=== PATIENT | male | born 1950 | race African-American/Black ===

== ENCOUNTER 2022-03-28 09:48 | Outpatient (CLI) | payer OTHER | END 2022-03-28 09:49 | disposition home or self-care (01) | LOC: BICULT 09:48 | PROVIDERS: ATTEND Physician Assistant Medical | DX: R79.89 Other specified abnormal findings of blood chemistry (principal); B18.2 Chronic viral hepatitis C; K76.89 Other specified diseases of liver; N28.1 Cyst of kidney, acquired | CPT/HCPCS: 76705 ==

== ENCOUNTER 2022-05-02 10:48 | Outpatient (CLI) | payer OTHER ==
[~2022-05-02 10:48] MED LIST: Iopamidol 370 76% 100 ML VIAL ONE
== END 2022-05-02 10:49 | disposition home or self-care (01) ==
LOC: CT 10:48
PROVIDERS: ATTEND Physician Assistant Medical
DX: R79.89 Other specified abnormal findings of blood chemistry (principal); R93.89 Abnormal findings on diagnostic imaging of other specified body structures; B18.2 Chronic viral hepatitis C
CPT/HCPCS: 74170; 82565; Q9967

== ENCOUNTER 2022-05-06 19:39 | Emergency (ER) | payer OTHER ==
[2022-05-06 20:43] LABS: #Basophils 0.1 thou/uL (0.0-0.2); #Eosinphils 0.4 thou/uL (0.0-0.7); #Lymphocytes 2.4 thou/uL (1.20-3.40); #Monocytes 1.2 thou/uL (0.11-0.59); #Neutrophils 6.7 thou/uL (1.40-6.50); %Basophils 0.9 % (0.0-1.0); %Eosinophils 3.5 % (0.0-10.0); %Lymphocytes 22.3 % (21.0-51.0); %Monocytes 11.3 % (0.0-10.0); %Neutrophils 62.1 % (42.0-75.0); Hemoglobin 10.4 g/dL (14.0-18.0); Mean Corpuscular HGB CONC 32.9 g/dL (32.0-36.0); Mean Corpuscular Hemoglobin 33.5 pg (27.0-31.0); Mean Platelet Volume 10.8 fL (7.4-10.4); Platelet Count 229 thou/uL (130-400); RBC Distribution Width 18.5 % (11.5-14.5); White Blood Cell (WBC) Count 10.7 thou/uL (4.8-10.8)
[2022-05-06 21:00] LABS: ALT (SGPT) 109 U/L (8-55); AST (SGOT) 196 U/L (5-34); Albumin 2.3 g/dL (3.4-4.8); Alkaline Phosphatase 698 U/L (40-110); Anion Gap 14 mmol/L (10-20); BUN (Urea Nitrogen) 13 mg/dL (8.4-25.7); Bilirubin, Total 17.1 mg/dL (0.2-1.2); Calc. Creatinine Clearance 0 mL/min (70-130); Carbon Dioxide 19 mmol/L (23-31); Chloride 106 mmol/L (98-107); Estimated GFR 87; Globulin 5.4 g/dL (2.4-3.5); Glucose 82 mg/dL (83-110); Protein, Total 7.7 g/dL (5.8-8.1); Sodium 135 mmol/L (136-145)
[2022-05-06] MEDS ORDERED: hydrOXYzine 25 MG TAB ONE (22:26)
== END 2022-05-06 23:44 | disposition left against medical advice (07) ==
LOC: ERS 19:39
DX: K72.90 Hepatic failure, unspecified without coma (principal); R16.0 Hepatomegaly, not elsewhere classified; I81 Portal vein thrombosis; F17.210 Nicotine dependence, cigarettes, uncomplicated
CPT/HCPCS: 36415; 71045; 80053; 83880; 84484; 85025; 93005

== ENCOUNTER 2022-05-08 21:19 | Emergency (ER) | payer OTHER ==
[2022-05-08 22:32] LABS: #Basophils 0.1 thou/uL (0.0-0.2); #Eosinphils 0.4 thou/uL (0.0-0.7); #Lymphocytes 2.5 thou/uL (1.20-3.40); #Monocytes 1.3 thou/uL (0.11-0.59); #Neutrophils 6.9 thou/uL (1.40-6.50); %Basophils 0.5 % (0.0-1.0); %Eosinophils 3.4 % (0.0-10.0); %Lymphocytes 22.2 % (21.0-51.0); %Monocytes 11.3 % (0.0-10.0); %Neutrophils 62.6 % (42.0-75.0); Hemoglobin 10.1 g/dL (14.0-18.0); Mean Corpuscular HGB CONC 32.1 g/dL (32.0-36.0); Mean Corpuscular Hemoglobin 32.5 pg (27.0-31.0); Mean Platelet Volume 10.3 fL (7.4-10.4); Platelet Count 241 thou/uL (130-400); RBC Distribution Width 18.6 % (11.5-14.5); Red Blood Cell (RBC) Count 3.12 mill/uL (4.70-6.10); White Blood Cell (WBC) Count 11.1 thou/uL (4.8-10.8)
[2022-05-08 22:48] LABS: ALT (SGPT) 101 U/L (8-55); AST (SGOT) 180 U/L (5-34); Albumin 2.3 g/dL (3.4-4.8); Alkaline Phosphatase 680 U/L (40-110); Anion Gap 14 mmol/L (10-20); BUN (Urea Nitrogen) 21 mg/dL (8.4-25.7); Bilirubin, Total 17.9 mg/dL (0.2-1.2); Calc. Creatinine Clearance 0 mL/min (70-130); Calcium 8.9 mg/dL (7.8-10.44); Carbon Dioxide 19 mmol/L (23-31); Chloride 105 mmol/L (98-107); Estimated GFR 73; Globulin 5.5 g/dL (2.4-3.5); Glucose 84 mg/dL (83-110); Potassium 4.1 mmol/L (3.5-5.1); Protein, Total 7.8 g/dL (5.8-8.1); Sodium 134 mmol/L (136-145)
[2022-05-09 00:39] LABS: Bilirubin 4+ (Negative); Blood, Urine Negative (Negative); Clarity Clear (Clear); Glucose, Urine (Dipstick) Normal (Negative); Ketone, Urine Negative (Negative); Leukocyte Negative Leu/uL (Negative); Nitrite Negative (Negative); Protein, Urine (Dipstick) 20 mg/dL (Neg-Trace); Specific Gravity, Urine 1.028 (1.002-1.036); Urobilinogen 3 mg/dL (Less than 2)
[2022-05-09] MEDS ORDERED: hydrOXYzine 25 MG TAB ONE (01:19)
[2022-05-09 03:23] LABS: SARS-CoV-2 NAA Rapid Test Not Detected (NotDetected)
== END 2022-05-09 04:26 | disposition short-term general hospital (02) ==
LOC: ERS 21:19
DX: K83.8 Other specified diseases of biliary tract (principal); E80.6 Other disorders of bilirubin metabolism; I81 Portal vein thrombosis; R74.01 Elevation of levels of liver transaminase levels; Z20.822 Contact with and (suspected) exposure to COVID-19; F17.210 Nicotine dependence, cigarettes, uncomplicated
CPT/HCPCS: 80053; 81003; 85025; 99284; U0002; 36415

== ENCOUNTER 2022-05-30 11:32 | Emergency (ER) | payer OTHER ==
[2022-05-30] MEDS ORDERED: Dextrose 50% Abboject 50 ML SYRINGE ONE (11:55)
[2022-05-30 12:58] LABS: Bilirubin Negative (Negative); Blood, Urine 1+ (Negative); Glucose, Urine (Dipstick) Normal (Negative); Ketone, Urine Trace mg/dL (Negative); Leukocyte Negative Leu/uL (Negative); Nitrite Negative (Negative); Protein, Urine (Dipstick) 20 mg/dL (Neg-Trace); RBC/HPF 0-3 HPF (0-3); Specific Gravity, Urine 1.017 (1.002-1.036); Squamous Epithelial 0-3 HPF (0-3); Urobilinogen 3 mg/dL (Less than 2); WBC/HPF 0-3 HPF (0-3); pH, Urine 5.5 (5.0-9.0)
[2022-05-30 12:59] LABS: Bacteria/HPF 1+ HPF (None Seen); Clarity Cloudy (Clear)
[2022-05-30 13:00] LABS: ALT (SGPT) 1493 U/L (8-55); Albumin 1.7 g/dL (3.4-4.8); Alkaline Phosphatase 397 U/L (40-110); Anion Gap 27 mmol/L (10-20); BUN (Urea Nitrogen) 67 mg/dL (8.4-25.7); Bilirubin, Total 5.3 mg/dL (0.2-1.2); CK (CPK) 294 U/L (30-200); Calc. Creatinine Clearance 0 mL/min (70-130); Calcium 8.3 mg/dL (7.8-10.44); Carbon Dioxide 12 mmol/L (23-31); Chloride 119 mmol/L (98-107); Estimated GFR 30; Globulin 4.9 g/dL (2.4-3.5); Glucose 120 mg/dL (83-110); Lipase 70 U/L (8-78); Potassium 5.9 mmol/L (3.5-5.1); Protein, Total 6.6 g/dL (5.8-8.1); Sodium 152 mmol/L (136-145)
[2022-05-30 13:01] LABS: Band 23 % (5-11); Hemoglobin 6.4 g/dL (14.0-18.0); Hypochromia SLIGHT = 6-15 cells (100X) (0-5/hpf); Lymphocytes 4 % (21-51); MDiff Complete? YES; Macrocytosis MODERATE=16-30 cells (100X) (0-5/hpf); Mean Corpuscular HGB CONC 29.5 g/dL (32.0-36.0); Mean Corpuscular Hemoglobin 33.7 pg (27.0-31.0); Mean Platelet Volume 9.6 fL (7.4-10.4); Neutrophil 72 % (42-75); Platelet Count 246 thou/uL (130-400); Platelet Morphology Comment Appears Adequate; Polychromasia SLIGHT = 2-3 cells (100X) (0-2/hpf); RBC Distribution Width 15.1 % (11.5-14.5); Reactive Lymphocytes 1 % (0-10); Red Blood Cell (RBC) Count 1.91 mill/uL (4.70-6.10); White Blood Cell (WBC) Count 28.5 thou/uL (4.8-10.8)
[2022-05-30 13:10] LABS: INR-International Normal Ratio 2.9; PTT 44.2 sec (22.9-36.1); Prothrombin Time 31.2 sec (12.0-14.7)
[2022-05-30 13:22] LABS: CKMB 3.8 ng/mL (0-6.6)
[2022-05-30 13:31] LABS: AST (SGOT) Greater than 3500 U/L (5-34)
[2022-05-30] MEDS ORDERED: Vancomycin 1 GM/200 ML BAG ONE (13:33)
[2022-05-30] MEDS ORDERED: Cefepime 2 GM VIAL ONE (13:34)
[2022-05-30] MEDS ORDERED: Rocuronium Bromide 10 MG/ML (10ML VIAL) ONE (13:59)
[2022-05-30] MEDS ORDERED: Fentanyl 100 MCG/2 ML VIAL ONE (14:30)
[2022-05-30 14:52] LABS: Actual Bicarbonate (HCO3a) 7.9 mEq/L (22-28); Analyzer IN Cardio ER; Base Excess (BEa) -18.6 mEq/L (-2.0 to +3.0); Calcium, Ionized (arterial) 1.03 mmol/L (1.12-1.30); Carboxyhemoglobin (COHb) 0.3 gm% (0.0-3.0); O2 Tension (PaO2), arterial 206.6 mmHg (> 70.0)
[2022-05-30 14:55] LABS: Hemoglobin (Hb) 5.7 g/dL (14.0-18.0); Puncture Site LBA; pH, Arterial 7.19 (7.35-7.45)
[2022-05-30 15:30] LABS: SARS-CoV-2 NAA Rapid Test Not Detected (NotDetected)
[2022-05-30] MEDS ORDERED: Sodium Bicarb 50 MEQ/50 ML VIAL ONE (15:33)
[2022-05-30] MEDS ORDERED: Fentanyl CADD 100 ML IV SCH (16:00)
[2022-05-30 16:29] LABS: Lactic Acid 17.2 mmol/L (0.5-2.2)
== END 2022-05-30 16:59 | disposition short-term general hospital (02) ==
LOC: ERS 11:32
DX: K72.90 Hepatic failure, unspecified without coma (principal); J96.90 Respiratory failure, unspecified, unspecified whether with hypoxia or hypercapnia; R65.21 Severe sepsis with septic shock; D64.9 Anemia, unspecified; I10 Essential (primary) hypertension; F17.210 Nicotine dependence, cigarettes, uncomplicated; Z79.899 Other long term (current) drug therapy; Z20.822 Contact with and (suspected) exposure to COVID-19
CPT/HCPCS: 36430; 36600; 71045; 74018; 80053; 82140; 82550; 82553; 82805; 82962; 83605; 83690; 83880; 84484; 85025; 85610; 85730; 86850; 86900; 86901; 86920; 87040; 87077; 87149 ×2; 87186; 93005; J3010; P9016; U0002; 31500; 36415; 36416; 36556; 51702; 81003; 81015; 82274; 96361; 96365; 96367; 96375; J0692; J3370; J7999